=== PATIENT | male | born 1970 | race Caucasian/White ===

== ENCOUNTER 2016-11-25 22:04 | Emergency (ER) | payer MEDICAID ==
[~2016-11-25] VITALS: Ht 180.3 cm; Wt 65.0 kg
[2016-11-25 22:20] VITALS: BP 109/77; PULSE 90; RESP 18; TEMP 98.1; O2SAT 95; O2SAT 97
[2016-11-25] MEDS ORDERED: SODIUM CHLOR 0.9% 1000 ML INJ 1,000 ML IV ONE (22:45)
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
[2016-11-25 23:15] VITALS: BP 110/65; PULSE 80; RESP 16; O2SAT 96
[2016-11-25 23:22] LABS: AUTOMATED NEUTROPHIL # 6.9 TH/MM3 (1.8-7.7); BASOPHIL # 0.1 TH/MM3 (0-0.2); BASOPHIL % 1.4 % (0.0-2.0); EOSINOPHIL # 0.4 TH/MM3 (0-0.4); EOSINOPHIL % 4.3 % (0.0-4.0); HEMATOCRIT 36.8 % (39.0-51.0); LYMPH % 20.2 % (9.0-44.0); LYMPHOCYTE # 2.1 TH/MM3 (1.0-4.8); MEAN CORPUSCULAR HEMOGLOBIN 31.8 PG (27.0-34.0); MEAN CORPUSCULAR HGB CONC 34.5 % (32.0-36.0); MONO % 6.9 % (0.0-8.0); NEUT % 67.2 % (16.0-70.0); PLATELET COUNT 225 TH/MM3 (150-450); WHITE BLOOD COUNT 10.3 TH/MM3 (4.0-11.0)
[2016-11-25 23:23] LABS: HEMO FLAGS AUTO DIFF
[2016-11-25] MEDS ORDERED: LOMO2.5T PO (23:50)
[2016-11-25] MEDS ORDERED: PREG25 PO (23:50)
[2016-11-25] MEDS ORDERED: PERC10TA27 PO (23:50)
[2016-11-25] MEDS ORDERED: BENT20TA PO (23:50)
[2016-11-25 23:54] LABS: BANDS 1 % (0-6); BASOPHILS 2 % (0-2); BICARBONATE 27.3 MEQ/L (21.0-32.0); EOSINOPHILS 6 % (0-4); MYELOCYTES 1 % (0-0); NEUTROPHIL # MANUAL DIFF 6.5 TH/MM3 (1.8-7.7); POLYS (SEG NEUTROPHILS) 61 % (16-70); POTASSIUM 3.3 MEQ/L (3.5-5.1); SCAN/DIFF FINAL DIFF MANUAL; WBC DIFF SAMPLE 100
[2016-11-25 23:55] LABS: PLATELET ESTIMATE SMEAR NORMAL (NORMAL); PLATELET MORPHOLOGY NORMAL (NORMAL)
[2016-11-26] VITALS: BP 116/71; PULSE 83; RESP 16; O2SAT 96
[2016-11-26] MEDS ORDERED: HYDROmorphone HCL PF 1 MG/ML VIAL IVS ONE (00:15)
[2016-11-26] MEDS ORDERED: SODIUM CHLOR 0.9% 1000 ML INJ 1,000 ML IV ONE (00:15)
[2016-11-26] MEDS ORDERED: POTASSIUM CHLORIDE 20 MEQ PWD PACKET PO ONE (00:15)
[2016-11-26 00:46] LABS: BACTERIA, URINE RARE /hpf; BLOOD, URINE LARGE (NEG); COMMENT (UR) CULT NOT INDICATED; CULTURE IF INDICATED CULT NOT INDICATED; GLUCOSE,URINE NEG (NEG); KETONE, URINE NEG (NEG); MUCUS URINE FEW /lpf (OCC); NITRITE,URINE NEG (NEG); PH, URINE 5.5 (5.0-8.5); SQUAMOUS EPITHELIAL CELL URINE <1 /hpf (0-5); URINE COLOR YELLOW (YELLW/STRAW)
[2016-11-26 02:00] VITALS: BP 111/83; PULSE 77; RESP 16; O2SAT 95
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
[2016-11-26 03:00] VITALS: BP 117/67; PULSE 75; RESP 16; O2SAT 95
[2016-11-26] MEDS ORDERED: HYDR-3533 PO (03:06)
[2016-11-26] MEDS ORDERED: CIPR-9 PO (03:06)
[2016-11-26] MEDS ORDERED: CIPROFLOXACIN 500 MG TAB PO ONE (03:15)
[2016-11-26 09:58] VITALS: BP 115/68; PULSE 75; RESP 16; O2SAT 95
[2016-11-26 12:53] VITALS: BP 112/72; PULSE 75; RESP 18; O2SAT 98
[2016-11-26 14:50] VITALS: BP 134/90; PULSE 79; RESP 20; TEMP 98.1; O2SAT 98
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
== END 2016-11-26 17:15 | disposition home or self-care (01) ==
LOC: NEPE 22:04 → NEPJ 11-26 17:15
DX: N30.90 Cystitis, unspecified without hematuria (principal); L55.0 Sunburn of first degree; N20.0 Calculus of kidney; Z59.0 Homelessness
CPT/HCPCS: 74176; 80048; 81001; 85007; 85027; 96361; 96374; 99284; J1170; J7030

== ENCOUNTER 2016-12-02 15:51 | Emergency (ER) | payer MEDICAID ==
[~2016-12-02] VITALS: Ht 180.3 cm; Wt 70.0 kg
[~2016-12-02 15:51] MED LIST: BENT20TA PO; CIPR-9 PO; HYDR-3533 PO; LOMO2.5T PO; PERC10TA27 PO; PREG25 PO
[2016-12-02 15:57] VITALS: BP 122/87; PULSE 96; RESP 28; TEMP 97.8; O2SAT 98
[2016-12-02 15:59] VITALS: O2SAT 100
[2016-12-02 16:00] VITALS: O2SAT 92
[2016-12-02] MEDS ORDERED: methylPREDNISolone SOD SUCC 125 MG/2 ML VIAL IVP ONE (16:00)
[2016-12-02] MEDS ORDERED: SYMB80AE INH ×3 (16:02→19:56)
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
--- NOTE | 2016-12-02 16:24 | RADRPT ---
EXAM DATE/TIME: 12/02/2016 16:14 [facility] COMPARISON: No previous studies available for comparison. INDICATIONS : Shortness of breath and chest pain today. MEDICAL HISTORY : None. SURGICAL HISTORY : None. ENCOUNTER: Initial ACUITY: 1 day PAIN SCORE: 6/10 LOCATION: Bilateral chest FINDINGS: A single view of the chest demonstrates the lungs to be symmetrically aerated without evidence of mas s, infiltrate or effusion. The cardiomediastinal contours are unremarkable. Osseous structures are intact. CONCLUSION: Normal examination. Alexi Santizo MD on December 02, 2016 at 16:23 Board Certified Radiologist. This report was verified electronically.
[2016-12-02] MEDS: RESP: ALBUTEROL 2.5 MG/3 ML NEB (SCH) INH ×3 (16:30→17:31)
[2016-12-02 17:03] LABS: ANION GAP 9 MEQ/L (5-15); AST (GOT) 22 U/L (15-37); BICARBONATE 29.3 MEQ/L (21.0-32.0); BLOOD UREA NITROGEN 9 MG/DL (7-18); CHLORIDE 107 MEQ/L (98-107); GLOMERULAR FILTRATION RATE 104 ML/MIN (>89); POTASSIUM 4.1 MEQ/L (3.5-5.1); SODIUM (NA) 145 MEQ/L (136-145)
[2016-12-02 17:09] LABS: ALKALINE PHOSPHATASE 150 U/L (45-117); ALT (GPT) 36 U/L (12-78); TOTAL BILIRUBIN ADULT 0.3 MG/DL (0.2-1.0)
[2016-12-02 17:49] LABS: BLOOD GAS BASE EXCESS 2.4 mmol/L (-2-2); BLOOD GAS CARBOXYHEMOGLOBIN 4.3 % (0-4); BLOOD GAS HCO3 26 mmol/L (22-26); BLOOD GAS METHEMOGLOBIN 0.9 % (0-2); BLOOD GAS O2 HGB SATURATION 89 % (90-100); BLOOD GAS OXYGEN CONTENT 17.4 Vol % (12.0-20.0); BLOOD GAS PCO2 41 mmHg (38-42); BLOOD GAS PO2 63 mmHG (61-120); BLOOD GAS TOTAL HGB 13.9 G/DL (12.0-16.0); CRITICAL VALUE YES; TEMP CORR TO 98.6
[2016-12-02 17:50] LABS: DRAW SITE LT RADIAL; FIO2 21 %; NUMBER OF ARTERIAL PUNCTURES 1; STAT YES; ULNAR PULSE PRESENT
[2016-12-02 17:53] LABS: AUTOMATED NEUTROPHIL # 6.6 TH/MM3 (1.8-7.7); BASOPHIL # 0.1 TH/MM3 (0-0.2); EOSINOPHIL # 0.4 TH/MM3 (0-0.4); EOSINOPHIL % 4.1 % (0.0-4.0); HEMATOCRIT 41.5 % (39.0-51.0); HEMO FLAGS DIFF FINAL; LYMPH % 21.3 % (9.0-44.0); MEAN CELL VOLUME 92.6 FL (80.0-100.0); MEAN CORPUSCULAR HEMOGLOBIN 30.8 PG (27.0-34.0); MEAN CORPUSCULAR HGB CONC 33.3 % (32.0-36.0); MONO % 4.4 % (0.0-8.0); NEUT % 69.2 % (16.0-70.0); PLATELET COUNT 268 TH/MM3 (150-450); RED BLOOD COUNT 4.48 MIL/MM3 (4.50-5.90); RED CELL DISTRIBUTION WIDTH 12.8 % (11.6-17.2); WHITE BLOOD COUNT 9.6 TH/MM3 (4.0-11.0)
[2016-12-02] MEDS ORDERED: ALBU6.7H INH ×2 (19:17→19:56)
[2016-12-02] MEDS ORDERED: DOXY100C PO ×2 (19:17→19:56)
[2016-12-02] MEDS ORDERED: MEDR4PAK PO ×2 (19:17→19:56)
--- NOTE | 2016-12-03 21:45 | EKG ---
Date Performed: 12/02/2016 Time Performed: 16:07:42 PTAGE: 46 years EKG: Sinus rhythm NORMAL ECG NO PREVIOUS TRACING DOCTOR: Benson Kern Interpretating Date/Time 12/03/2016 21:43:29
== END 2016-12-02 21:15 | disposition home or self-care (01) ==
LOC: NEPE 15:51
DX: J44.1 Chronic obstructive pulmonary disease with (acute) exacerbation (principal); Z87.09 Personal history of other diseases of the respiratory system
CPT/HCPCS: 36600; 71010; 80053; 82805; 83880; 84484; 85025; 87804; 93005; 94640; 94664; 96374; 99285; J2930; J7613